=== PATIENT | male | born 1970 | race Caucasian/White ===

== ENCOUNTER 2023-01-16 08:40 | Emergency (ER) | payer OTHER ==
[~2023-01-16] VITALS: Ht 170.2 cm; Wt 72.7 kg
[2023-01-16 08:47] VITALS: BP 142/87
[2023-01-16] MEDS ORDERED: PRED-554 PO (10:51)
[2023-01-16] MEDS ORDERED: ACYC-138 PO (10:51)
[2023-01-16] MEDS ORDERED: CEPH-558 PO (10:51)
[2023-01-16] MEDS ORDERED: HYDR-4723 PO (10:51)
== END 2023-01-16 11:06 | disposition home or self-care (01) ==
LOC: EMS 08:45
DX: B02.9 Zoster without complications (principal)
CPT/HCPCS: 99283; Z7502